=== PATIENT | male | born 1940 | race Caucasian/White ===

== ENCOUNTER → 2016-12-27 | Outpatient (CLI) | payer MEDICARE, BC ==
[~2016-12-27] MED LIST: ADVIL200 MG PO; ASPIRIN E.C. 8181 MG PO; B & O SUPPRETTE1 SU1 RC; BROMELAIN500 MG PO; CAL-CITRATE PLU1 TAB PO; CALCIUM 500 + D1 TA1 PO; CALCIUM500 MG PO; CARDI-OMEGA1000 MG PO; GLUCOPHAGE500 MG/TAB PO; GLUCOSAMINE & C1 CA1 PO; HYDROCHLOR50 MG PO; METFORMIN500 MG PO; MOTRIN 800800 MG/TAB PO; NUVIGIL150 MG PO; OSTEO-BI-FLEX 21 TAB PO; RITE AID TURME500 MG PO; SEA KELP PO; STOOL SOFTENER100 M2 PO; SYNTHROID0.05 MG/TA PO; TYLENOL ELIX32 MG/M2 PO; TYLENOL EXTRA500 M1 PO; VESICARE 5MG5 MG PO; VITAMIN B COMPL1 SGL PO; VITAMIN B COMPL1 T16 PO; VITAMIN C PUR1000 MG PO; [UNRECOGNIZED DRUG - OTHER] PO
== END ==
LOC: SUN.DIA 08:27
DX: E11.65 Type 2 diabetes mellitus with hyperglycemia (principal); Z79.84 Long term (current) use of oral hypoglycemic drugs; Z68.38 Body mass index [BMI] 38.0-38.9, adult; Z71.3 Dietary counseling and surveillance; E78.5 Hyperlipidemia, unspecified; I10 Essential (primary) hypertension